=== PATIENT | female | born 1950 | race Two or more races ===

== ENCOUNTER 2024-07-25 16:15 | Emergency (ER) | payer OTHER ==
[~2024-07-25] VITALS: Ht 162.6 cm; Wt 62.1 kg
[~2024-07-25 16:15] MED LIST: VERAPAMIL ER240 MG PO
[2024-07-25] MEDS ORDERED: SERTRALINE HCL25 MG PO (16:42)
[2024-07-25] MEDS ORDERED: CLONAZEPAM2 MG PO (16:42)
[2024-07-25] MEDS ORDERED: PROGESTERONE200 MG PO (16:42)
[2024-07-25] MEDS ORDERED: HYDROCHLOROTHIA25 MG PO (16:42)
[2024-07-25] MEDS ORDERED: SIMVASTATIN20 MG PO (16:42)
[2024-07-25 17:46] LABS: HEMATOCRIT 45.1 % (36.0-45.00); HEMOGLOBIN 14.7 g/dL (12.0-15.00); MEAN CELL VOLUME 96.5 fL (80.00-100.00); MEAN CORPUSCULAR HEMOGLOBIN 31.5 pg (27.00-32.0); MEAN CORPUSCULAR HGB CONC 32.6 g/dl (32.0-36.0); PLATELET COUNT 265 K/uL (150-450); RED BLOOD COUNT 4.68 M/uL (4.00-6.00); RED CELL DISTRIBUTION WIDTH 13.2 % (11.5-14.5)
[2024-07-25 18:13] LABS: ALBUMIN 3.6 gm/dL (3.4-5.0); BILIRUBIN TOTAL 0.49 mg/dL (0.3-1.2); CALCIUM 9.7 mg/dL (8.5-10.1); CREATININE SERUM 1.32 mg/dL (0.55-1.02); GFR 39.56; GLOBULINA 3.8 G/DL (2.4-3.5); POTASSIUM 4.22 mEq/L (3.5-5.1); TOTAL PROTEIN 7.4 gm/dL (6.4-8.2)
== END 2024-07-25 19:08 | disposition home or self-care (01) ==
LOC: ER 16:17
PROVIDERS: General Practice
DX: R53.81 Other malaise (principal); E16.2 Hypoglycemia, unspecified; R55 Syncope and collapse; Z88.5 Allergy status to narcotic agent

== ENCOUNTER 2025-03-09 22:32 | Emergency (ER) | payer OTHER ==
[~2025-03-09] VITALS: Ht 162.6 cm; Wt 65.8 kg
[~2025-03-09 22:32] MED LIST changes: +CLONAZEPAM2 MG PO; +HYDROCHLOROTHIA25 MG PO; +PROGESTERONE200 MG PO; +SERTRALINE HCL25 MG PO; +SIMVASTATIN20 MG PO
[2025-03-10 02:03] LABS: BASO % 0.6 % (0.1-1.2); EOS # 0.26 (0.04-0.54); EOS % 1.9 % (0.7-7.0); LYMPH # 3.28 (1.18-3.74); LYMPH % 24.2 % (19.3-53.1); MEAN PLATELET VOLUME 9.60 fl (9.4-12.4); MONO # 1.06 (0.24-0.82); MONO % 7.8 % (4.7-12.5); NEUT # 8.74 (1.56-6.13); NEUT % 64.4 % (34.0-71.1); RED CELL DISTRIBUTION WIDTH 13.6 % (11.6-14.4)
[2025-03-10 02:29] LABS: ALT/SGPT 19.0 U/L (12-78); AST/SGOT 14.0 U/L (15-37); BILIRUBIN TOTAL 0.46 mg/dL (0.3-1.2); BUN CREA RATIO 19.0 (7.0-25.0); CREATININE SERUM 1.41 mg/dL (0.55-1.02); GFR 36.56; GLOBULINA 3.4 G/DL (2.4-3.5); GLUCOSE FASTING 135.0 mg/dL (65-100); OSMOLALITY SERUM 287.0 MOSM/KG (275-295)
[2025-03-10 02:40] LABS: URINE APPEARANCE Clear; URINE BILIRRUBIN Negative (NEGATIVE); URINE BLOOD Trace; URINE COLOR Yellow; URINE GLUCOSE Negative (NEGATIVE); URINE KETONE Negative (NEGATIVE); URINE LEUKOCYTE Small; URINE NITRATE Negative; URINE PROTEIN Negative (NEGATIVE); URINE UROBILINOGEN 0.2 E.U./dl
[2025-03-10 02:44] LABS: URINE BACTERIA 2828.1 uL (0.0-1933); URINE EPITHELIAL CELLS 13.2 uL (0.0-38.8); URINE WBC 32.6 uL (0.0-23.2)
[2025-03-10 02:45] LABS: URINE CAST 0.43 uL (0.0-1.40); URINE RBC 1.4 uL (0.0-20.8)
[2025-03-10] MEDS ORDERED: CIPRO500 MG PO (02:59)
[2025-03-10] MEDS ORDERED: PROBIOTIC1 EAC2 PO (02:59)
[2025-03-10] MEDS ORDERED: PEPCID AC20 MG PO (02:59)
[2025-03-10 03:20] LABS: COVID-19 AG NEGATIVE (NEGATIVE)
== END 2025-03-10 03:39 | disposition home or self-care (01) ==
LOC: ER 22:32
PROVIDERS: General Practice
DX: R55 Syncope and collapse (principal); R53.1 Weakness; N39.0 Urinary tract infection, site not specified; Z20.822 Contact with and (suspected) exposure to COVID-19; I10 Essential (primary) hypertension; Z88.5 Allergy status to narcotic agent